=== PATIENT | male | born 1990 | race African-American/Black ===

== ENCOUNTER 2018-07-20 00:15 | Emergency (ER) | payer OTHER ==
[~2018-07-20] VITALS: Ht 165.1 cm; Wt 88.9 kg
[2018-07-20 01:54] VITALS: BP 127/68; TEMP 97.9
== END 2018-07-20 01:46 | disposition home or self-care (01) ==
LOC: ED 00:15
DX: S39.012A Strain of muscle, fascia and tendon of lower back, initial encounter (principal)
CPT/HCPCS: 81000; 96372; 99283; J1885